=== PATIENT | male | born 1980 | race Caucasian/White ===

== ENCOUNTER 2021-05-26 20:16 | Emergency (ER) | payer SELFPAY ==
[~2021-05-26] VITALS: Ht 165.1 cm; Wt 77.3 kg
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
[2021-05-26 23:39] VITALS: BP 106/65
== END 2021-05-26 23:41 ==
LOC: EEVIPCON 20:16 → ER 20:16
DX: U07.1 COVID-19 (principal); S00.31XA Abrasion of nose, initial encounter; X58.XXXA Exposure to other specified factors, initial encounter; Y93.89 Activity, other specified; Y92.89 Other specified places as the place of occurrence of the external cause; Y99.8 Other external cause status
CPT/HCPCS: 87426; 99283